=== PATIENT | male | born 1930 | race Caucasian/White ===

== ENCOUNTER → 2016-09-09 | Outpatient (CLI) | payer OTHER ==
[~2016-09-09] MED LIST: ASPCH81 PO; ATEN-173 PO; ATOR10TA88 PO; LEVO88TA22 PO; MULT-506 PO; OMEG10007 PO; PRLSR20 PO; VITAMINC; [UNRECOGNIZED DRUG - OTHER]; [UNRECOGNIZED DRUG - OTHER]
[2016-09-09 10:14] LABS: ALT/SGPT 41 U/L (12-78); AST/SGOT 30 U/L (15-37); BLOOD UREA NITROGEN 21 mg/dl (7-18); BUN/CREATININE RATIO 18.9 (10-20); CALCIUM 9.1 mg/dl (8.5-10.1); CARBON DIOXIDE 28 mmol/L (21-32); CHLORIDE 106 mmol/L (98-107); GLUCOSE 96 mg/dl (70-99); SODIUM 144 mmol/L (136-145)
[2016-09-09 10:25] LABS: ALB/GLOB RATIO 1.3 (0.9-2); ALKALINE PHOSPHATASE 61 U/L (45-117); CHOLESTEROL 133 mg/dl (0-200); CHOLESTEROL/HDL RATIO 3.6; HDL CHOLESTEROL 37 mg/dl; LDL CHOLESTEROL CALCULATED 49 mg/dl; TRIGLYCERIDES 235 mg/dl (0-150); VERY LOW DENSITY LIPOPROT CALC 47 mg/dl
== END | disposition home or self-care (01) ==
LOC: C.LAB 07:45
PROVIDERS: ATTEND Internal Medicine
DX: I47.1 Supraventricular tachycardia (principal); E03.9 Hypothyroidism, unspecified; E78.00 Pure hypercholesterolemia, unspecified

== ENCOUNTER → 2017-02-10 | Outpatient (CLI) | payer OTHER | END | disposition home or self-care (01) | LOC: C.LAB 08:38 | PROVIDERS: ATTEND Urology | DX: C61 Malignant neoplasm of prostate (principal) ==

== ENCOUNTER → 2017-02-10 | Outpatient (CLI) | payer OTHER ==
[2017-02-10 10:12] LABS: THYROID STIMULATING HORMONE 3.74 uIu/ml (0.300-4.500)
== END | disposition home or self-care (01) ==
LOC: C.LAB 08:35
PROVIDERS: ATTEND Internal Medicine
DX: E03.9 Hypothyroidism, unspecified (principal); C61 Malignant neoplasm of prostate

== ENCOUNTER → 2017-10-21 | Outpatient (CLI) | payer OTHER ==
[~2017-10-21] MED LIST changes: +ATOR10TA82 PO; -ATOR10TA88 PO
[2017-10-21 12:22] LABS: HEMATOCRIT 42.8 % (42-52); HEMOGLOBIN 15.1 g/dL (14.0-18.0); MEAN CORPUSCULAR HEMOGLOBIN 33.9 pg (25-34); MEAN CORPUSCULAR HGB CONC 35.3 g/dl (32-36); MEAN PLATELET VOLUME 10.1 fL (7.4-10.4); PLATELET COUNT 154 K/uL (130-400); RED CELL DISTRIBUTION WIDTH CV 12.8 % (11.5-14.5); RED CELL DISTRIBUTION WIDTH SD 44.3 fL (36.4-46.3); WHITE BLOOD COUNT 6.02 K/uL (4.8-10.8)
[2017-10-21 13:03] LABS: ALT/SGPT 39 U/L (12-78); AST/SGOT 31 U/L (15-37); BLOOD UREA NITROGEN 23 mg/dl (7-18); CALCIUM 9.3 mg/dl (8.5-10.1); CARBON DIOXIDE 27 mmol/L (21-32); CREATININE 1.02 mg/dl (0.60-1.40); GLUCOSE 100 mg/dl (70-99); POTASSIUM 4.2 mmol/L (3.5-5.1); SODIUM 142 mmol/L (136-145)
[2017-10-21 13:14] LABS: ALKALINE PHOSPHATASE 68 U/L (45-117); TOTAL PROTEIN 7.3 gm/dl (6.4-8.2)
== END | disposition home or self-care (01) ==
LOC: C.LAB 11:01
PROVIDERS: ATTEND Internal Medicine
DX: E03.9 Hypothyroidism, unspecified (principal); K21.9 Gastro-esophageal reflux disease without esophagitis; C61 Malignant neoplasm of prostate; E78.00 Pure hypercholesterolemia, unspecified

== ENCOUNTER 2020-12-17 07:52 | Inpatient (IN) ==
[2020-12-17] MEDS: SODIUM CHLORIDE 0.9% 1000ML 1,000 ML IV SCH ×3 (08:48→17:12)
[2020-12-17 08:58] LABS: Basophils # (auto) 0.01 K/uL (0-0.2); Basophils % (auto) 0.2 %; Hematocrit (blood only) 39.4 % (42-52); Hemoglobin 13.6 g/dL (14.0-18.0); Immature Granulocytes # (auto) 0.01 K/uL (0.00-0.02); Immature Granulocytes % (auto) 0.2 %; Lymphocytes # (auto) 0.73 K/uL (1.2-3.4); Lymphocytes % (auto) 16.9 %; Mean Corpuscular Hemoglobin 33.7 pg (25-34); Mean Corpuscular Hgb Conc 34.5 g/dL (32-36); Mean Corpuscular Volume 97.8 fL (80-100); Mean Platelet Volume 9.8 fL (7.4-10.4); Monocytes # (auto) 0.51 K/uL (0.11-0.59); Monocytes % (auto) 11.8 %; Neutrophils # (auto) 3.06 K/uL (1.4-6.5); Neutrophils % (auto) 70.9 %; Platelet Count 106 K/uL (130-400); RDW Coefficient of Variation 12.5 % (11.5-14.5); RDW Standard Deviation 45.2 fL (36.4-46.3); Red Blood Count 4.03 M/uL (4.7-6.1); White Blood Count 4.32 K/uL (4.8-10.8)
[2020-12-17 09:13] LABS: Alanine Aminotransferase 49 U/L (12-78); Albumin Level 3.3 gm/dl (3.4-5.0); Aspartate Aminotransferase 58 U/L (15-37); BUN Creatinine Ratio 20.5 (10-20); Blood Urea Nitrogen 23 mg/dl (7-18); Calcium 8.1 mg/dl (8.5-10.1); Carbon Dioxide 24 mmol/L (21-32); Chloride 103 mmol/L (98-107); Est GFR (African American) 66.9 ml/min; Est GFR (Non-African American) 57.7 ml/min; Glucose 131 mg/dl (70-99); Lipase 87 U/L (73-393); Potassium 3.8 mmol/L (3.5-5.1); Sodium 134 mmol/L (136-145)
[2020-12-17 09:16] LABS: Alkaline Phosphatase 59 U/L (45-117); Bilirubin,Total 0.9 mg/dl (0.2-1); Globulin 3.3 gm/dl (2.5-4.0); Total Protein 6.6 gm/dl (6.4-8.2)
[2020-12-17] MEDS ORDERED: DICYCLOMINE HCL 10 MG CAP PO ONE (09:36)
[2020-12-17] MEDS ORDERED: ONDANSETRON INJ 2 MG/ML 2 ML VIAL IV STA (09:36)
[2020-12-17] MEDS ORDERED: ACETAMINOPHEN 1,000 MG/100 ML VIAL IV STA (09:36)
[2020-12-17] MEDS ORDERED: OPTIRAY 320 100ml IV ONE (09:50)
--- NOTE | 2020-12-17 09:53 | Emergency Department Note ---
History of Present Illness General Chief complaint: GI Assessment Stated complaint: BURNING/COUGH UNTIL HE VOMITS Time Seen by Provider: 12/17/20 07:58 Source: patient and family Mode of arrival: wheelchair Limitations: no limitations History of Present Illness Provider complaint: Weakness, diarrhea Onset (ago): day(s) 1 Location: abdomen Radiation: non-radiation Severity: moderate Pain Consistency: + colicky Maximum Pain Intensity: 10 Current Pain Intensity: 10 Quality: + constant Relieved By: + none Exacerbated By: + eating and + movement Associated symptoms: + loss of appetite, + malaise and + weakness; no fever/chills Treatments prior to arrival: none This is an 89-year-old male who presents complaining of weakness and diarrhea. Patient states this all began yesterday evening, and has gotten worse. States he had several episodes of diarrhea this morning, prompting him to ask his daughter to bring him to the emergency room. Patient denies any recent sickness, no known sick contact. States approximately a month ago his "stomach medication" was changed, and since that time he has had burning in his stomach and an increase in acid reflux type symptoms which she has a long history of. No recent dietary changes. No recent use of antibiotics. He denies any blood in the diarrhea. States he is having colicky abdominal pain. States accompanying nausea, no vomiting. Denies any prior significant GI history of IBS, IBD, diverticulitis. Denies fevers or chills. Daughter states he has had a cough for about a week in addition and she is concerned for coronavirus. Daughter again confirms the reported medication change a month ago for his reflux. Patient was noted to have ongoing diarrhea in triage and upon arrival into the room. Pt seen during a time of high acuity and national emergency pandemic while wearing PPE. Home Medications Medication Instructions Recorded Confirmed Type ascorbic acid (vitamin C) [Vitamin 25 mg PO DAILY 12/17/20 12/17/20 History C] atenolol 25 mg PO QPM 12/17/20 12/17/20 History atorvastatin 10 mg PO [id number] 12/17/20 12/17/20 History famotidine 20 mg PO QAM 12/17/20 12/17/20 History levothyroxine 100 mcg PO QAM 12/17/20 12/17/20 History multivitamin 1 tab PO DAILY 12/17/20 12/17/20 History vitamin E [Alpha E] 400 unit PO DAILY 12/17/20 12/17/20 History zinc 10 mg PO DAILY 12/17/20 12/17/20 History Allergies Allergy/AdvReac Type Severity Reaction Status Date / Time No Known Allergies Allergy Unknown Verified 12/17/20 11:34 Past Med/Surg History Medical History (Updated 12/19/20 @ 13:19 by Laura Chin DO) GERD (gastroesophageal reflux disease) Heart murmur History of prostate cancer Hyperlipidemia Hypothyroid PVCs (premature ventricular contractions) Surgical History (Updated 12/17/20 @ 13:16 by Judith Gee PA-C) History of cholecystectomy History of colonoscopy History of esophagogastroduodenoscopy (EGD) History of lumbosacral spine surgery Family History (Updated 12/17/20 @ 13:17 by Judith Gee PA-C) Mother Urinary incontinence Social History (Updated 12/17/20 @ 13:17 by Judith Gee PA-C) Smoking Status: Never smoker Hx Alcohol Use: No Hx Substance Use: No Preferred Language: German Communication Ability: Effective Beliefs That Will Affect Care: None marital status: Current Living Situation: Spouse and Family Current Living Situation Comment: and son Other Information That Helps Us Care for You: No Feels Safe at Home: Yes Assistive Devices: Oxygen - Continuous Review of Systems See HPI for pertinent positives & negatives. and A total of 10 systems reviewed and were otherwise negative Physical Exam Vital Signs Vital Signs - 24 hr 12/17/20 07:55 12/17/20 08:09 12/17/20 08:12 Temperature 37.6 C H Temperature Source Temporal Artery Scan Pulse Rate 66 77 76 Pulse Rate from SpO2 Sensor 69 77 Respiratory Rate 18 21 21 Respiratory Effort / Characteristics Non-Labored Respiratory Depth Normal Blood Pressure 136/62 142/57 H Blood Pressure Mean 86 85 Pulse Oximetry 91 92 95 Oxygen Delivery Method Room Air Sepsis Recent Fever Within 48 Hours No Sepsis New/Unexplained Change in Mental Status No Sepsis Action Taken by Nursing No Action Required 12/17/20 08:30 12/17/20 09:00 Temperature Temperature Source Pulse Rate 79 77 Pulse Rate from SpO2 Sensor 72 67 Respiratory Rate 13 25 H Respiratory Effort / Characteristics Respiratory Depth Blood Pressure 117/57 L 107/60 Blood Pressure Mean 77 75 Pulse Oximetry 91 92 Oxygen Delivery Method Sepsis Recent Fever Within 48 Hours Sepsis New/Unexplained Change in Mental Status Sepsis Action Taken by Nursing GENERAL: alert, ill appearing, well nourished, no distress, non-toxic EYE EXAM: normal conjunctiva, PERRL and EOM's grossly intact OROPHARYNX: no exudate, no erythema, lips, buccal mucosa, and tongue normal and mucous membranes are moist NECK: supple, no nuchal rigidity, no adenopathy, non-tender LUNGS: Clear to auscultation. Normal chest wall mechanics, no w/r/r HEART: no murmurs, S1 normal and S2 normal, no reproducible chest wall tenderness ABDOMEN: abdomen soft, no tenderness or pain with palpation however generalized discomfort, normo-active bowel sounds, no masses, no rebound or guarding. BACK: Back is symmetrical on inspection and there is no deformity, no midline tenderness, no CVA tenderness. SKIN: no rashes and no bruising, no petechiae UPPER EXTREMITIES: upper extremities are grossly normal. FROM, nml pulses b/l. LOWER EXTREMITIES: 2+ b/l pitting edema which family states is chronic. FROM, nml pulses b/l. Dried stool noted on feet. NEURO EXAM: Normal sensorium, cranial nerves II-XII grossly intact, normal speech, no gross weakness of arms, no gross weakness of legs. Gross sensation intact. Course Course 1106: Patient and daughter updated on results. Patient states he still feels reflux/burning, denies any current nausea. States he still has some mild colicky abdominal discomfort. Patient has had several episodes of diarrhea while in the emergency department. States he still feels weak and lightheaded with standing. 1125[facility]. [facility]ations Artificial Tears (Artificial Tears) 1 drops OP UD PRN PRN Reason: DRY EYES Stop: 01/17/21 21:14 Last Admin: 12/18/20 22:07 Dose: 1 drops Documented by: [id number] Atenolol (Atenolol 25 Mg Tablet) 25 mg PO QPM MAIDA Stop: 01/16/21 20:59 Last Admin: 12/18/20 20:38 Dose: 25 mg Documented by: [id number] Admin: 12/17/20 20:57 Dose: 25 mg Documented by: [id number] Enoxaparin Sodium (Enoxaparin Inj 40 Mg/0.4 Ml Syr) 40 mg SQ Q24H MAIDA Stop: 01/16/21 15:59 Last Admin: 12/18/20 15:53 Dose: 40 mg Documented by: [id number] Admin: 12/17/20 17:12 Dose: 40 mg Documented by: [id number] Guaifenesin (Guaifenesin 600 Mg Tabcr) 600 mg PO Q12 MAIDA Stop: 01/16/21 20:59 Last Admin: 12/19/20 08:45 Dose: 600 mg Documented by: [id number] Admin: 12/18/20 20:38 Dose: 600 mg Documented by: [id number] Admin: 12/18/20 09:26 Dose: 600 mg Documented by: [id number] Admin: 12/17/20 20:46 Dose: 600 mg Documented by: [id number] Dexamethasone 6 mg/ Syringe 1.5 mls @ 1 mls/min IV DAILY MAIDA Stop: 12/27/20 13:14 Last Admin: 12/19/20 08:45 Dose: 1 mls/min Documented by: [id number] Admin: 12/18/20 09:27 Dose: 1 mls/min Documented by: [id number] Admin: 12/17/20 17:01 Dose: Not Given Documented by: [id number] Remdesivir 100 mg/ Sodium (Chloride) 250 mls @ 250 mls/hr IV Q24H MAIDA; Protocol Stop: 12/21/20 12:59 Last Admin: 12/19/20 12:17 Dose: 250 mls/hr Documented by: [id number] Infusion: 12/18/20 15:44 Dose: 0 mls/hr Documented by: [id number] Admin: 12/18/20 12:08 Dose: 250 mls/hr Documented by: [id number] Levothyroxine Sodium (Levothyroxine Sodium 100 Mcg Tablet) 100 mcg PO DAILY[facility] Stop: 01/17/21 06:29 Last Admin: 12/19/20 06:55 Dose: 100 mcg Documented by: [id number] Admin: 12/18/20 05:55 Dose: 100 mcg Documented by: [id number] Multivitamins (Multivitamin Tab) 1 tab PO DAILY MAIDA Stop: 01/17/21 08:59 Last Admin: 12/19/20 08:45 Dose: 1 tab Documented by: [id number] Admin: 12/18/20 09:27 Dose: 1 tab Documented by: [id number] Pantoprazole Sodium (Pantoprazole 40 Mg Tab) 40 mg PO DAILY MAIDA Stop: 12/20/20 09:01 Last Admin: 12/19/20 08:45 Dose: 40 mg Documented by: [id number] Admin: 12/18/20 09:26 Dose: 40 mg Documented by: [id number] Sodium Chloride (Sodium Chloride 0.9% 10ml Flush) 30 ml IV Q24H MAIDA Stop: 12/21/20 12:01 Last Admin: 12/18/20 12:09 Dose: 30 ml Documented by: [id number] Discontinued Medications Dexamethasone (Dexamethasone Sod Inj 4 Mg/Ml Vial) Confirm Administered Dose 8 mg .ROUTE .STK-MED ONE Stop: 12/17/20 13:41 Last Admin: 12/17/20 13:45 Dose: 6 mg Documented by: [id number] Dicyclomine HCl (Dicyclomine Hcl 10 Mg Cap) 10 mg PO NOW ONE Stop: 12/17/20 09:37 Last Admin: 12/17/20 10:06 Dose: 10 mg Documented by: [id number] Famotidine (Famotidine 20mg/5ml Iv Push) 20 mg IV ONE STA Stop: 12/17/20 11:09 Last Admin: 12/17/20 11:55 Dose: 20 mg Documented by: [id number] Sodium Chloride (Nss 1000ml) 1,000 mls @ 250 mls/hr IV .Q4H MAIDA Stop: 01/16/21 08:29 Last Admin: 12/17/20 16:07 Dose: Not Given Documented by: [id number] Infusion: 12/17/20 15:24 Dose: 0 mls/hr Documented by: [id number] Admin: 12/17/20 08:48 Dose: 250 mls/hr Documented by: [id number] Acetaminophen (Ofirmev) 1,000 mg in 100 mls @ 400 mls/hr IV NOW STA Stop: 12/17/20 09:50 Last Infusion: 12/17/20 10:25 Dose: 400 mls/hr Documented by: [id number] Admin: 12/17/20 10:04 Dose: 400 mls/hr Documented by: [id number] Remdesivir 200 mg/ Sodium (Chloride) 250 mls @ 125 mls/hr IV ONE STA; Protocol Stop: 12/17/20 15:08 Last Infusion: 12/17/20 13:45 Dose: 0 mls/hr Documented by: [id number] Admin: 12/17/20 13:44 Dose: 125 mls/hr Documented by: [id number] Sodium Chloride (Nss 1000ml) 1,000 mls @ 100 mls/hr IV .Q10H MAIDA Stop: 12/18/20 11:44 Last Infusion: 12/18/20 09:28 Dose: 0 mls/hr Documented by: [id number] Admin: 12/18/20 03:26 Dose: 100 mls/hr Documented by: [id number] Infusion: 12/18/20 03:26 Dose: 0 mls/hr Documented by: [id number] Admin: 12/17/20 17:12 Dose: 100 mls/hr Documented by: [id number] Furosemide 40 mg/ Syringe 4 mls @ 4 mls/min IV NOW ONE Stop: 12/18/20 12:31 Last Admin: 12/18/20 13:28 Dose: 4 mls/min Documented by: [id number] Ioversol (Optiray 320 100ml) 90 ml IV ONCE ONE Stop: 12/17/20 09:51 Last Admin: 12/17/20 09:51 Dose: 90 ml Documented by: [id number] Ipratropium [place] (Ipratropium [place] Neb Soln 0.02% 2.5 Ml Vial) 0.5 mg INH ONE ONE Stop: 12/18/20 12:31 Last Admin: 12/18/20 13:15 Dose: 0.5 mg Documented by: [id number] Levalbuterol HCl (Levalbuterol 1.25mg/0.5ml Neb) 1.25 mg INH ONE ONE Stop: 12/18/20 12:31 Last Admin: 12/18/20 13:15 Dose: 1.25 mg Documented by: [id number] Ondansetron HCl (Ondansetron Inj 2 Mg/Ml 2 Ml Vial) 4 mg IV NOW STA Stop: 12/17/20 09:37 Last Admin: 12/17/20 10:03 Dose: 4 mg Documented by: [id number] Pantoprazole Sodium (Pantoprazole 40 Mg Tab) 40 mg PO NOW STA Stop: 12/17/20 12:23 Last Admin: 12/17/20 13:44 Dose: 40 mg Documented by: [id number] Sodium Chloride (Nss 30ml Flush, Days 1-5) 30 ml IV ONE STA Stop: 12/17/20 13:40 Last Admin: 12/17/20 16:07 Dose: 30 ml Documented by: [id number] Medical Decision Making Differential Diagnosis Differential: Viral, Bacterial, Parasitic, Iatrogenic, C-Diff, Malabsorbtion, Irritable Bowel Disease, IBS, Ischemic Bowel, amongst other pathologies entertained. Medical Records Attestation: I reviewed the patient's medical records. Home Medications Current Medication List: was personally reviewed by me Laboratory Data Attestation: I reviewed the patient's lab results. Result diagrams: 12/18/20 02:38 12/19/20 07:36 Lab Results 12/17/20 12/17/20 12/17/20 Range/Units 08:38 08:38 08:39 WBC 4.32 L (4.8-10.8) K/uL RBC 4.03 L (4.7-6.1) M/uL Hgb 13.6 L (14.0-18.0) g/dL Hct 39.4 L (42-52) % MCV 97.8 (80-100) fL MCH 33.7 (25-34) pg MCHC 34.5 (32-36) g/dL RDW Std Deviation 45.2 (36.4-46.3) fL RDW Coeff of Anais 12.5 (11.5-14.5) % Plt Count 106 L (130-400) K/uL MPV 9.8 (7.4-10.4) fL Immature Gran % (Auto) 0.2 % Neut % (Auto) 70.9 % Lymph % (Auto) 16.9 % [place] % (Auto) 11.8 % Eos % (Auto) 0.0 % Baso % (Auto) 0.2 % Neut # (Auto) 3.06 (1.4-6.5) K/uL Lymph # (Auto) 0.73 L (1.2-3.4) K/uL [place] # (Auto) 0.51 (0.11-0.59) K/uL Eos # (Auto) 0.00 (0-0.5) K/uL Baso # (Auto) 0.01 (0-0.2) K/uL Immature Gran # (Auto) 0.01 (0.00-0.02) K/uL D-Dimer (0-500) ug/L FEU Sodium 134 L (136-145) mmol/L Potassium 3.8 (3.5-5.1) mmol/L Chloride 103 (98-107) mmol/L Carbon Dioxide 24 (21-32) mmol/L Anion Gap 8.0 (3-11) BUN 23 H (7-18) mg/dl Creatinine 1.13 (0.6-1.4) mg/dl Est Cr Clr Drug Dosing Not Reportable Est GFR ( Amer) 66.9 ml/min Est GFR (Non-Af Amer) 57.7 ml/min BUN/Creatinine Ratio 20.5 H (10-20) Glucose 131 H (70-99) mg/dl POC Glucose (70-99) mg/dl Calcium 8.1 L (8.5-10.1) mg/dl Phosphorus (2.5-4.9) mg/dl Magnesium 2.0 (1.8-2.4) mg/dl Ferritin 1560.8 H (8-388) ng/ml Total Bilirubin 0.9 (0.2-1) mg/dl AST 58 H (15-37) U/L ALT 49 (12-78) U/L Alkaline Phosphatase 59 (45-117) U/L Troponin I (0-0.045) ng/ml C-Reactive Protein 1.89 H (0-0.29) mg/dl NT-Pro-B Natriuret Pep (0-1800) pg/ml Total Protein 6.6 (6.4-8.2) gm/dl Albumin 3.3 L (3.4-5.0) gm/dl Globulin 3.3 (2.5-4.0) gm/dl Albumin/Globulin Ratio 1.0 (0.9-2) Lipase 87 (73-393) U/L Stl C. diff Tox B Gene TNP COVID-19 Eval Order SARS-CoV-2 (PCR) (Negative) 12/17/20 12/17/20 12/17/20 Range/Units 10:10 10:10 15:17 WBC (4.8-10.8) K/uL RBC (4.7-6.1) M/uL Hgb (14.0-18.0) g/dL Hct (42-52) % MCV (80-100) fL MCH (25-34) pg MCHC (32-36) g/dL RDW Std Deviation (36.4-46.3) fL RDW Coeff of Anais (11.5-14.5) % Plt Count (130-400) K/uL MPV (7.4-10.4) fL Immature Gran % (Auto) % Neut % (Auto) % Lymph % (Auto) % [place] % (Auto) % Eos % (Auto) % Baso % (Auto) % Neut # (Auto) (1.4-6.5) K/uL Lymph # (Auto) (1.2-3.4) K/uL [place] # (Auto) (0.11-0.59) K/uL Eos # (Auto) (0-0.5) K/uL Baso # (Auto) (0-0.2) K/uL Immature Gran # (Auto) (0.00-0.02) K/uL D-Dimer 830 H* (0-500) ug/L FEU Sodium (136-145) mmol/L Potassium (3.5-5.1) mmol/L Chloride (98-107) mmol/L Carbon Dioxide (21-32) mmol/L Anion Gap (3-11) BUN (7-18) mg/dl Creatinine (0.6-1.4) mg/dl Est Cr Clr Drug Dosing Est GFR ( Amer) ml/min Est GFR (Non-Af Amer) ml/min BUN/Creatinine Ratio (10-20) Glucose (70-99) mg/dl POC Glucose (70-99) mg/dl Calcium (8.5-10.1) mg/dl Phosphorus (2.5-4.9) mg/dl Magnesium (1.8-2.4) mg/dl Ferritin (8-388) ng/ml Total Bilirubin (0.2-1) mg/dl AST (15-37) U/L ALT (12-78) U/L Alkaline Phosphatase (45-117) U/L Troponin I (0-0.045) ng/ml C-Reactive Protein (0-0.29) mg/dl NT-Pro-B Natriuret Pep (0-1800) pg/ml Total Protein (6.4-8.2) gm/dl Albumin (3.4-5.0) gm/dl Globulin (2.5-4.0) gm/dl Albumin/Globulin Ratio (0.9-2) Lipase (73-393) U/L Stl C. diff Tox B Gene COVID-19 Eval Order Covid19 at [facility] SARS-CoV-2 (PCR) POSITIVE A* (Negative) 12/17/20 12/17/20 12/18/20 Range/Units 15:17 20:15 02:38 WBC 2.73 L (4.8-10.8) K/uL RBC 3.92 L (4.7-6.1) M/uL Hgb 13.0 L (14.0-18.0) g/dL Hct 38.6 L (42-52) % MCV 98.5 (80-100) fL MCH 33.2 (25-34) pg MCHC 33.7 (32-36) g/dL RDW Std Deviation 45.6 (36.4-46.3) fL RDW Coeff of Anais 12.7 (11.5-14.5) % Plt Count 107 L (130-400) K/uL MPV 10.1 (7.4-10.4) fL Immature Gran % (Auto) 0.4 % Neut % (Auto) 53.8 % Lymph % (Auto) 30.0 % [place] % (Auto) 15.8 % Eos % (Auto) 0.0 % Baso % (Auto) 0.0 % Neut # (Auto) 1.47 (1.4-6.5) K/uL Lymph # (Auto) 0.82 L (1.2-3.4) K/uL [place] # (Auto) 0.43 (0.11-0.59) K/uL Eos # (Auto) 0.00 (0-0.5) K/uL Baso # (Auto) 0.00 (0-0.2) K/uL Immature Gran # (Auto) 0.01 (0.00-0.02) K/uL D-Dimer (0-500) ug/L FEU Sodium (136-145) mmol/L Potassium (3.5-5.1) mmol/L Chloride (98-107) mmol/L Carbon Dioxide (21-32) mmol/L Anion Gap (3-11) BUN (7-18) mg/dl Creatinine (0.6-1.4) mg/dl Est Cr Clr Drug Dosing Est GFR ( Amer) ml/min Est GFR (Non-Af Amer) ml/min BUN/Creatinine Ratio (10-20) Glucose (70-99) mg/dl POC Glucose (70-99) mg/dl Calcium (8.5-10.1) mg/dl Phosphorus (2.5-4.9) mg/dl Magnesium (1.8-2.4) mg/dl Ferritin (8-388) ng/ml Total Bilirubin (0.2-1) mg/dl AST (15-37) U/L ALT (12-78) U/L Alkaline Phosphatase (45-117) U/L Troponin I 0.073 H* 0.069 H* (0-0.045) ng/ml C-Reactive Protein (0-0.29) mg/dl NT-Pro-B Natriuret Pep (0-1800) pg/ml Total Protein (6.4-8.2) gm/dl Albumin (3.4-5.0) gm/dl Globulin (2.5-4.0) gm/dl Albumin/Globulin Ratio (0.9-2) Lipase (73-393) U/L Stl C. diff Tox B Gene COVID-19 Eval Order SARS-CoV-2 (PCR) (Negative) 12/18/20 12/18/20 12/18/20 Range/Units 02:38 02:38 07:53 WBC (4.8-10.8) K/uL RBC (4.7-6.1) M/uL Hgb (14.0-18.0) g/dL Hct (42-52) % MCV (80-100) fL MCH (25-34) pg MCHC (32-36) g/dL RDW Std Deviation (36.4-46.3) fL RDW Coeff of Anais (11.5-14.5) % Plt Count (130-400) K/uL MPV (7.4-10.4) fL Immature Gran % (Auto) % Neut % (Auto) % Lymph % (Auto) % [place] % (Auto) % Eos % (Auto) % Baso % (Auto) % Neut # (Auto) (1.4-6.5) K/uL Lymph # (Auto) (1.2-3.4) K/uL [place] # (Auto) (0.11-0.59) K/uL Eos # (Auto) (0-0.5) K/uL Baso # (Auto) (0-0.2) K/uL Immature Gran # (Auto) (0.00-0.02) K/uL D-Dimer (0-500) ug/L FEU Sodium 140 (136-145) mmol/L Potassium 4.2 (3.5-5.1) mmol/L Chloride 109 H (98-107) mmol/L Carbon Dioxide 26 (21-32) mmol/L Anion Gap 5.0 (3-11) BUN 18 (7-18) mg/dl Creatinine 0.98 (0.6-1.4) mg/dl Est Cr Clr Drug Dosing 62.6 Est GFR ( Amer) 79.5 ml/min Est GFR (Non-Af Amer) 68.6 ml/min BUN/Creatinine Ratio 18.4 (10-20) Glucose 133 H (70-99) mg/dl POC Glucose 124 H (70-99) mg/dl Calcium 7.7 L (8.5-10.1) mg/dl Phosphorus 2.6 (2.5-4.9) mg/dl Magnesium 2.4 (1.8-2.4) mg/dl Ferritin (8-388) ng/ml Total Bilirubin 0.7 (0.2-1) mg/dl AST 59 H (15-37) U/L ALT 47 (12-78) U/L Alkaline Phosphatase 54 (45-117) U/L Troponin I 0.054 H* (0-0.045) ng/ml C-Reactive Protein (0-0.29) mg/dl NT-Pro-B Natriuret Pep 1287 (0-1800) pg/ml Total Protein 5.7 L (6.4-8.2) gm/dl Albumin 2.7 L (3.4-5.0) gm/dl Globulin 3.0 (2.5-4.0) gm/dl Albumin/Globulin Ratio 0.9 (0.9-2) Lipase (73-393) U/L Stl C. diff Tox B Gene COVID-19 Eval Order SARS-CoV-2 (PCR) (Negative) Imaging Data Radiologist's Impression: Abdomen/Pelvis CT 12/17/20 09:[address] WITH IV CONTRAST CT DOSE: 915.76 mGy.cm HISTORY: Generalized abdominal pain. Nausea. Diarrhea. TECHNIQUE: Multiaxial CT images of the abdomen and pelvis were performed following the use of intravenous contrast. A dose lowering technique was utilized adhering to the principles of ALARA. COMPARISON STUDY: Abdomen and pelvis CT 10/28/2011. FINDINGS: Patchy multifocal groundglass airspace opacities within the lung bases with mild interlobular septal thickening. This favors a mild viral pneumonia. Pulmonary edema could also have a similar appearance but is considered less likely. There is mild interlobular septal thickening and a trace right pleural e ffusion. The heart is mildly enlarged. There are few subcentimeter pulmonary nodules within the lung bases with the largest in the right lower lobe on image 88 measuring 6 mm. These remain unchanged and are therefore considered to be benign. No pneumoperitoneum. No pneumatosis. Posterior decompression and fusion from L2 through L5 with pedicle screws and rods. No suspicious lytic or blastic osseous lesions. Small hiatus hernia. Cholecystectomy. Mild hepatic steatosis. There are few subcentimeter hypodensities within the liver. These are technically too small to characterize but favor small cysts. Mild intrahepatic bile duct dilatation. The common bile duct measures up to 11 mm. This could be due to the patient's postcholecystectomy state. The spleen, adrenal glands, and pancreas are unremarkable. No hydronephrosis. No retroperitoneal lymphadenopathy. The main portal vein is patent. Normal caliber abdominal aorta. No pelvic lymphadenopathy. The bladder is unremarkable. Multiple brachytherapy seeds are noted within the prostate gland. Nondilated fluid-filled loops of large and small bowel are seen throughout the abdomen. No definite bowel wall thickening. No evidence for bowel obstruction. Normal appendix. Colonic diverticulosis. No evidence for acute diverticulitis. IMPRESSION: 1. Nondilated fluid-filled loops of large and small bowel seen throughout the abdomen. This likely represents a gastroenteritis. No definite bowel wall thickening. 2. Colonic diverticulosis. No evidence for acute diverticulitis. 3. Patchy multifocal airspace opacities seen within the lung bases. This favors a mild viral pneumonia. 4. Additional findings as described above. ACT 112: Negative or not required by law. Electronically signed by: Michael Gresham M.D. 12/17/2020 10:09 AM ECG Data Attestation: I personally reviewed and interpreted this ECG as follows: Indication: + nausea Rate (beats per minute): 70 Rhythm: + normal sinus ECG Intervals/blocks: + First degree AV block, + Normal QRS and + Normal QT ECG [place]: + Left axis deviation ECG ST segments: + Nonspecific ST abnormalities ECG Findings: + PVCs MDM Narrative This is an 89-year-old male brought in by family due to concern for increased weakness and diarrhea. Of note while patient denied anything else in review of systems related to his breathing, daughter states she had noticed an intermittent dry cough over the course of the week. Labs drawn and sent, patient started on gentle IV fluid hydration given advanced age, and unknown overall cardiac status. Patient was given medication for nausea. Patient did have several episodes of diarrhea while here. Cultures including C. difficile were ordered. Patient with no other risk factors for C. difficile and no prior history of that. CT of the abdomen and pelvis did show likely viral process in the lungs as well as likely gastroenteritis in the abdomen. Coronavirus test was positive which likely explains both of these findings. Patient was hemodynamically stable in the emergency room. No complaints of respiratory distress and no hypoxia noted or reported to me. Discussed with him additional inpatient monitoring given ongoing GI losses, continued weakness/lightheadedness with standing likely representing dehydration and orthostatic symptoms. I do not suspect bacteremia/sepsis. Patient states burning in the chest consistent with prior reflux type symptoms. No dysrhythmia noted on telemetry, occasional PVCs. No history of CAD although patient does have risk factors. I do not suspect ACS, PE, or acute vascular etiology of the chest burning at this time. Patient states burning began after his reflux medication was changed several weeks ago. Mild pancytopenia also noted, likely worsened with acute viral process. Patient and daughter verbalized understanding of results and were in agreement with the plan. Case discussed with hospitalist team for additional evaluation and treatment. An order was placed for continuous cardiac monitoring. The monitor shows a rate of 68_ with _normal sinus__ rhythm. Patient has no family history of IBS/IBD. Patient was first seen and observation began at 0758 and was necessary in order to determine etiology of diarrhea and treat symptoms including dehydration. Upon re-evaluation, 3.5 hours of observation revealed that the patient should be admitted. Discharge time at 1155. Impression & Plan Diarrhea, COVID-19, Weakness, Acute dehydration, Pancytopenia, GERD (gastroesophageal reflux disease) Discharge Plan Visit Data Chief Complaint: GI Assessment Stated Complaint: BURNING/COUGH UNTIL HE VOMITS ED Provider: Laura Chin Discharge Problem: Diarrhea, COVID-19, Weakness, Acute dehydration, Pancytopenia, GERD (gastroesophageal reflux disease) Patient Disposition: Admitted As Inpatient Discharge Instructions Interventions: ED Discharge Assessment Last Done: 12/17/20 14:26 Discharge Problem: Diarrhea Qualifiers: Diarrhea type: unspecified type Qualified Code(s): R19.7 - Diarrhea, unspecified GERD (gastroesophageal reflux disease) Qualifiers: Esophagitis presence: esophagitis presence not specified Qualified Code(s): K21.9 - Gastro-esophageal reflux disease without esophagitis
--- NOTE | 2020-12-17 10:10 | CT Scan Report ---
ABDOMEN AND PELVIS CT WITH IV CONTRAST CT DOSE: 915.76 mGy.cm HISTORY: Generalized abdominal pain. Nausea. Diarrhea. TECHNIQUE: Multiaxial CT images of the abdomen and pelvis were performed following the use of intrave nous contrast. A dose lowering technique was utilized adhering to the principles of ALARA. COMPARISON STUDY: Abdomen and pelvis CT 10/28/2011. FINDINGS: Patchy multifocal groundglass airspace opacities within the lung bases with mild interlobul ar septal thickening. This favors a mild viral pneumonia. Pulmonary edema could also have a similar a ppearance but is considered less likely. There is mild interlobular septal thickening and a trace rig ht pleural effusion. The heart is mildly enlarged. There are few subcentimeter pulmonary nodules with in the lung bases with the largest in the right lower lobe on image 88 measuring 6 mm. These remain u nchanged and are therefore considered to be benign. No pneumoperitoneum. No pneumatosis. Posterior de compression and fusion from L2 through L5 with pedicle screws and rods. No suspicious lytic or blasti c osseous lesions. Small hiatus hernia. Cholecystectomy. Mild hepatic steatosis. There are few subcen timeter hypodensities within the liver. These are technically too small to characterize but favor sma ll cysts. Mild intrahepatic bile duct dilatation. The common bile duct measures up to 11 mm. This cou ld be due to the patient's postcholecystectomy state. The spleen, adrenal glands, and pancreas are un remarkable. No hydronephrosis. No retroperitoneal lymphadenopathy. The main portal vein is patent. No rmal caliber abdominal aorta. No pelvic lymphadenopathy. The bladder is unremarkable. Multiple brachy therapy seeds are noted within the prostate gland. Nondilated fluid-filled loops of large and small b owel are seen throughout the abdomen. No definite bowel wall thickening. No evidence for bowel obstru ction. Normal appendix. Colonic diverticulosis. No evidence for acute diverticulitis. IMPRESSION: 1. Nondilated fluid-filled loops of large and small bowel seen throughout the abdomen. This likely re presents a gastroenteritis. No definite bowel wall thickening. 2. Colonic diverticulosis. No evidence for acute diverticulitis. 3. Patchy multifocal airspace opacities seen within the lung bases. This favors a mild viral pneumoni a. 4. Additional findings as described above. ACT 112: Negative or not required by law. Electronically signed by: Michael Gresham M.D. 12/17/2020 10:09 AM
[2020-12-17] MEDS ORDERED: FAMOTIDINE 20MG/5ML IV PUSH IV STA (11:08)
--- NOTE | 2020-12-17 12:09 | XRay Report ---
XR chest 1V portable HISTORY: cough, covid COMPARISON: Abdomen and pelvis CT 12/17/2020. FINDINGS: No pneumothorax. There is mild diffuse interstitial thickening. There are patchy hazy airsp gracie opacities within the mid to lower lung zones most pronounced on the left. This likely represents a viral pneumonia. The heart is mildly enlarged. IMPRESSION: Bilateral patchy airspace opacities within the mid to lower lung zones consistent with a viral pneumo geoffrey. ACT 112: Negative or not required by law. Electronically signed by: Michael Gresham M.D. 12/17/2020 12:08 PM
[2020-12-17] MEDS ORDERED: PANTOprazole 40 MG TAB PO STA (12:22)
--- NOTE | 2020-12-17 12:27 | History & Physical Report ---
Date of Service December 17, 2020 Assessment & Plan (1) COVID-19 virus infection: (2) Diarrhea: (3) Acute respiratory failure with hypoxia: Patient is an 89 yo male who presented to the ED with complaints of diarrhea, stool incontinence, and weakness. He was found to be COVID+ on initial testing. In the ED, patient was also noted to have slight O2 desaturation down to 87% on room air. CXR consistent with viral pneumonia. Admit to Med/Surg with telemetry for further tx Continue O2 supplementation to maintain SaO2 >90% Continue to monitor vitals closely. NSS 100 cc/hr x 2 bags Regular diet- easy to chew. Aspiration precautions with dysphagia secondary to GERD. Advance as tolerated Continue COVID Isolation precautions Recheck C Diff if able based on liquid stools. Follow stool cultures. With O2 desaturation, will start IV Decadron 6 mg daily x 10 days. Start Remdesivir. Incentive spirometry Q1HWA Flutter valve QID Mucinex 600 mg BID Repeat CXR tomorrow AM Zofran PRN Nausea Fall precautions. Consider PT/OT if weakness continues. Patient is full code (4) Bilateral lower extremity edema: B/L LE with severe edema. Some chronic component per patient, but worrisome. Will check Venous Doppler B/L LE (5) Burning chest pain: Check DDimer with burning chest pain, COVID infection, and O2 desaturation. Consider CTA Chest if elevated. Troponin also added. (6) PVCs (premature ventricular contractions): (7) Heart murmur: Continue cardiac monitoring. BP slightly elevated. HR controlled. Continue home meds (8) GERD (gastroesophageal reflux disease): (9) Dysphagia: Burning in chest and ongoing dysphagia (dysphagia has been for months). Continue famotidine. Start PPI Consider continuing PPI upon discharge- patient was previously on omeprazole until around August. This is when symptoms worsened. Diet as above (10) DVT prophylaxis: Lovenox 40 SQ daily History of Present Illness Chief Complaint: Diarrhea, COVID+ Primary Care Provider: Jelena Fajardo Patient is an 89 yo male with PMHx of hyperlipidemia, PVCs, GERD, and history of Prostate CA in 2009 who presented to the ED with complaints of ongoing diarrhea and stool incontinence starting last night and into this morning. He initially started having increased GERD symptoms with burning in his chest about 1 week ago. He notes that his PCP changed him from omeprazole to famotidine about 3 months ago, and since that time, his GERD has been poorly controlled. He also has ongoing dysphagia at times because of it. Last week, his GERD got much worse, and he has had consistent 'acid in throat' and burning in his chest since that time. His daughter, Camilla is with him today. She notes a mild cough at home as well. The patient has not had his COVID vaccine. He does live at home with one of his sons and is relatively independent. This morning, he also became weak. He did not fall. He notes that he has not eaten much of anything since Friday because of the increased GERD symptoms. No black or bloody stools noted. Upon presentation, patient was noted to be actively incontinent of stool in the waiting room. Since presentation, the patient was noted to be COVID+. Stool for C Diff was rejected though it sounds like he has had persistently watery stools since then. Stool culture pending. Labs show mild anemia with Hgb 13.6. WBC count low at 4.32 CT of the abd/pelvis and CXR both showed signs of viral pneumonia. Creatinine was 1.13 with GFR 57%. AST slightly elevated to 58. SaO2 dropping in ED to 88% on room air during exam. Patient states that he does also have chronic LE edema, but this seems worse than usual as well. He is not feeling SOB or complaining of chest pain other than the burning. Allergies Allergy/AdvReac Type Severity Reaction Status Date / Time No Known Allergies Allergy Unknown Verified 12/17/20 11:34 Home Medications Medication Instructions Recorded Confirmed Type ascorbic acid (vitamin C) [Vitamin 25 mg PO DAILY 12/17/20 12/17/20 History C] atenolol 25 mg PO QPM 12/17/20 12/17/20 History atorvastatin 10 mg PO 3XWK 12/17/20 12/17/20 History famotidine 20 mg PO QAM 12/17/20 12/17/20 History levothyroxine 100 mcg PO QAM 12/17/20 12/17/20 History multivitamin 1 tab PO DAILY 12/17/20 12/17/20 History vitamin E [Alpha E] 400 unit PO DAILY 12/17/20 12/17/20 History zinc 10 mg PO DAILY 12/17/20 12/17/20 History Past Med/Surg History Medical History (Updated 12/17/20 @ 16:09 by Judith Gee PA-C) GERD (gastroesophageal reflux disease) Heart murmur History of prostate cancer Hyperlipidemia Hypothyroid PVCs (premature ventricular contractions) Surgical History (Updated 12/17/20 @ 13:16 by Judith Gee PA-C) History of cholecystectomy History of colonoscopy History of esophagogastroduodenoscopy (EGD) History of lumbosacral spine surgery Family History (Updated 12/17/20 @ 13:17 by Judith Gee PA-C) Mother Urinary incontinence Social History (Updated 12/17/20 @ 13:17 by Judith Gee PA-C) Smoking Status: Never smoker Hx Alcohol Use: No Hx Substance Use: No Preferred Language: [place] Beliefs That Will Affect Care: None Current Living Situation: Spouse and Family Current Living Situation Comment: and son Other Information That Helps Us Care for You: No Feels Safe at Home: Yes Assistive Devices: Glasses Review of Systems Review of Systems: All systems reviewed & are unremarkable except as noted in HPI & below Physical Exam Constitutional: WD/WN, vitals as above Eyes: PERRL, conjunctivae normal, anicteric sclerae ENMT: external ear and nose normal, oropharynx normal Neck: trachea midline, no thyromegaly Respiratory: normal respiratory effort; no respiratory distress, no labored breathing and does not use accessory muscles Auscultation: no crackles and no wheezes Cardiovascular: Rate/Rhythm: regular rate and regular rhythm Heart Sounds: + murmur Extremities: + pedal edema and + edema (B/L LE 1+ trace, but moderate edema otherwise); no calf tenderness Gastrointestinal (Abdomen): Inspection/Auscultation: abdomen normal to inspection and normal bowel sounds; abdomen not distended Percussion/Palpation: abdomen soft; abdomen nontender, no guarding and abdomen not rigid Musculoskeletal: Severe edema B/L LE. L>R. No erythema or warmth. Skin: no rashes, warm and dry Neurologic: PERRL, EOMI, accommodation nl, no face palsy, no dysarthria Psychiatric: A+Ox3, euthymic affect Results & Data Results & Data ([facility]) Vital Signs (Past 12 Hours) Vital Signs Temp Pulse Resp BP Pulse Ox 12/17/20 11:31 69 30 H 90 12/17/20 11:30 104 H 29 H 118/70 89 L 12/17/20 11:00 71 28 H 105/55 L 12/17/20 10:30 72 30 H 112/54 L 87 L 12/17/20 10:01 67 20 110/75 12/17/20 10:00 77 26 H 91 12/17/20 09:30 70 31 H 129/56 L 93 12/17/20 09:00 77 25 H 107/60 92 12/17/20 08:30 79 13 117/57 L 91 12/17/20 08:12 76 21 95 12/17/20 08:09 77 21 142/57 H 92 12/17/20 07:55 37.6 C H 66 18 136/62 91 Laboratory Results Laboratory Results - last 24 hr 12/17/20 12/17/20 12/17/20 08:38 08:38 08:39 WBC 4.32 L RBC 4.03 L Hgb 13.6 L Hct 39.4 L MCV 97.8 MCH 33.7 MCHC 34.5 RDW Std Deviation 45.2 RDW Coeff of Anais 12.5 Plt Count 106 L MPV 9.8 Immature Gran % (Auto) 0.2 Neut % (Auto) 70.9 Lymph % (Auto) 16.9 [place] % (Auto) 11.8 Eos % (Auto) 0.0 Baso % (Auto) 0.2 Neut # (Auto) 3.06 Lymph # (Auto) 0.73 L [place] # (Auto) 0.51 Eos # (Auto) 0.00 Baso # (Auto) 0.01 Immature Gran # (Auto) 0.01 Sodium 134 L Potassium 3.8 Chloride 103 Carbon Dioxide 24 Anion Gap 8.0 BUN 23 H Creatinine 1.13 Est Cr Clr Drug Dosing Not Reportable Est GFR ( Amer) 66.9 Est GFR (Non-Af Amer) 57.7 BUN/Creatinine Ratio 20.5 H Glucose 131 H Calcium 8.1 L Magnesium 2.0 Total Bilirubin 0.9 AST 58 H ALT 49 Alkaline Phosphatase 59 Total Protein 6.6 Albumin 3.3 L Globulin 3.3 Albumin/Globulin Ratio 1.0 Lipase 87 Stl C. diff Tox B Gene TNP COVID-19 Eval Order SARS-CoV-2 (PCR) 12/17/20 12/17/20 10:10 10:10 WBC RBC Hgb Hct MCV MCH MCHC RDW Std Deviation RDW Coeff of Anais Plt Count MPV Immature Gran % (Auto) Neut % (Auto) Lymph % (Auto) [place] % (Auto) Eos % (Auto) Baso % (Auto) Neut # (Auto) Lymph # (Auto) [place] # (Auto) Eos # (Auto) Baso # (Auto) Immature Gran # (Auto) Sodium Potassium Chloride Carbon Dioxide Anion Gap BUN Creatinine Est Cr Clr Drug Dosing Est GFR ( Amer) Est GFR (Non-Af Amer) BUN/Creatinine Ratio Glucose Calcium Magnesium Total Bilirubin AST ALT Alkaline Phosphatase Total Protein Albumin Globulin Albumin/Globulin Ratio Lipase Stl C. diff Tox B Gene COVID-19 Eval Order Covid19 at [facility] SARS-CoV-2 (PCR) POSITIVE A* Diagnostic Findings CXR: IMPRESSION: Bilateral patchy airspace opacities within the mid to lower lung zones consistent with a viral pneumonia. Abd/Pelvis CT: IMPRESSION: 1. Nondilated fluid-filled loops of large and small bowel seen throughout the abdomen. This likely represents a gastroenteritis. No definite bowel wall thickening. 2. Colonic diverticulosis. No evidence for acute diverticulitis. 3. Patchy multifocal airspace opacities seen within the lung bases. This favors a mild viral pneumonia. 4. Additional findings as described above. Code Status & VTE Plan VTE Prophylaxis Plan VTE Prophylaxis will be ordered: Yes Supervising Physician Co-Signing Physician Notes Attending Addendum: care coordinated with JASON Gee please refer to her notes for full details, I agree with her notes patient seen and examined, records reviewed by myself as well on exam, patient seen resting in bed, comfortable, on 2L 02 MS states he feels improved compared to admission epigastric discomfort resolved no active dyspnea, chest pain, dizziness, palpitations no abdominal pain, nausea/vomiting still has diarrhea no other symptoms VS noted and reviewed oriented x 3, not in distress, speaks in sentences with no effort nor accessory muscle use normal rate, regular rhythm, no murmurs clear breath sounds bilaterally non distended, soft, nontender (+) mild lower extremity edema, NO erythema, warmth no neuro deficits WBC 4.3 Hg 13.6 Crea 1.1 ASSESSMENT AND PLAN> COVID 19 PNEUMONIA WITH HYPOXIA start Remdesivir + Decadron GASTROENTERITIS SECONDARY TO COVID C diff test pending Imodium PRN GERD Protonix other diagnoses and plan of care as per JASON Wilder MD
[2020-12-17] MEDS ORDERED: REMDESIVIR 200 MG in SODIUM CHLORIDE 0.9% 210 ML IV STA (13:09)
[2020-12-17] MEDS ORDERED: NSS 30mL Flush, Days 1-5 IV STA (13:39)
[2020-12-17] MEDS ORDERED: DEXAMETHASONE SOD INJ 4 MG/ML VIAL ONE (13:40)
[2020-12-17] MEDS ORDERED: ONDANSETRON INJ 2 MG/ML 2 ML VIAL IV PRN (15:21)
[2020-12-17] MEDS ORDERED: ACETAMINOPHEN 325 MG TAB PO PRN (15:21)
[2020-12-17 15:52] LABS: D Dimer 830 ug/L FEU (0-500)
[2020-12-17] MEDS ORDERED: MICONAZOLE NITRATE POWDER 43 GM EXT PRN (16:47)
--- NOTE | 2020-12-17 16:50 | XRay Report ---
XR chest 1V portable HISTORY: Covid pneumonia. Shortness of breath. COMPARISON: Chest 12/17/2020. FINDINGS: No pneumothorax. No pleural effusions. The heart remains enlarged. Mild diffuse interstitia l thickening with patchy peripheral airspace opacities within the mid to lower lung zones persists. T his favors a viral pneumonia. IMPRESSION: No change in the bilateral mid to lower lung zone airspace opacities likely representing a viral pneu monia. ACT 112: Negative or not required by law. Electronically signed by: Michael Gresham M.D. 12/17/2020 4:49 PM
[2020-12-17] MEDS: dexAMETHasone 6 MG in SYRINGE 0 ML IV SCH (17:01)
[2020-12-17] MEDS: ENOXAPARIN INJ 40 MG/0.4 ML SYR SQ SCH (17:12)
[2020-12-17 18:19] LABS: C Reactive Protein 1.89 mg/dl (0-0.29); Ferritin 1560.8 ng/ml (8-388)
--- NOTE | 2020-12-17 20:02 | Ultrasound Report ---
BILATERAL LOWER EXTREMITY VENOUS DOPPLER HISTORY: Bilateral lower extremity edema COMPARISON STUDY: None. FINDINGS: There is normal compressibility, flow, and augmentation within the bilateral lower extremit y deep venous systems. IMPRESSION: No DVT within the right or left lower extremity. ACT 112: Negative or not required by law. Electronically signed by: Michael Gresham M.D. 12/17/2020 8:01 PM
[2020-12-17] MEDS: guaiFENesin 600 MG TABCR PO SCH (20:46)
[2020-12-17] MEDS: ATENOLOL 25 MG TABLET PO SCH (20:57)
--- NOTE | 2020-12-17 23:38 | Electrocardiogram Report ---
Test Reason : Blood Pressure : / mmHG Vent. Rate : 070 BPM Atrial Rate : 070 BPM P-R Int : 222 ms QRS Dur : 088 ms QT Int : 408 ms P-R-T Axes : 000 -28 008 degrees QTc Int : 440 ms Sinus rhythm with 1st degree A-V block with frequent Premature ventricular complexes and Premature at rial complexes Otherwise normal ECG When compared with ECG of 24-SEP-2007 09:18, DE interval has increased Nonspecific T wave abnormality no longer evident in Lateral leads Confirmed by Walt Weinberg ([id number]) on 12/17/2020 11:38:18 PM Referred By: REFERRED SELF Confirmed By:Walt Weinberg
[2020-12-18 03:19] LABS: Hematocrit (blood only) 38.6 % (42-52); Immature Granulocytes # (auto) 0.01 K/uL (0.00-0.02); Immature Granulocytes % (auto) 0.4 %; Lymphocytes # (auto) 0.82 K/uL (1.2-3.4); Mean Corpuscular Hemoglobin 33.2 pg (25-34); Mean Corpuscular Hgb Conc 33.7 g/dL (32-36); Mean Corpuscular Volume 98.5 fL (80-100); Mean Platelet Volume 10.1 fL (7.4-10.4); Monocytes # (auto) 0.43 K/uL (0.11-0.59); Monocytes % (auto) 15.8 %; Neutrophils # (auto) 1.47 K/uL (1.4-6.5); Neutrophils % (auto) 53.8 %; Platelet Count 107 K/uL (130-400); RDW Coefficient of Variation 12.7 % (11.5-14.5); RDW Standard Deviation 45.6 fL (36.4-46.3); Red Blood Count 3.92 M/uL (4.7-6.1); White Blood Count 2.73 K/uL (4.8-10.8)
[2020-12-18] MEDS: SODIUM CHLORIDE 0.9% 1000ML 1,000 ML IV SCH (03:26)
[2020-12-18 03:42] LABS: Albumin Level 2.7 gm/dl (3.4-5.0); BUN Creatinine Ratio 18.4 (10-20); Calcium 7.7 mg/dl (8.5-10.1); Creatinine Clr Calc Pharmacy 62.6 ml/min; Est GFR (African American) 79.5 ml/min; Est GFR (Non-African American) 68.6 ml/min; Magnesium 2.4 mg/dl (1.8-2.4); Potassium 4.2 mmol/L (3.5-5.1)
[2020-12-18 03:50] LABS: Albumin Globulin Ratio 0.9 (0.9-2); Bilirubin,Total 0.7 mg/dl (0.2-1); Phosphorus 2.6 mg/dl (2.5-4.9); Total Protein 5.7 gm/dl (6.4-8.2); Troponin I 0.054 ng/ml (0-0.045)
[2020-12-18] MEDS: LEVOTHYROXINE SODIUM 100 MCG TABLET PO SCH (05:55)
--- NOTE | 2020-12-18 08:19 | XRay Report ---
XR chest 1V portable HISTORY: Shortness of breath. Covid pneumonia. COMPARISON: Chest 12/17/2020. FINDINGS: Slight progression of the left mid to lower lung zone peripherally airspace opacities. Patc hy densities within the right mid to lower lung zone persists. The heart remains mildly enlarged. The re is diffuse interstitial thickening, unchanged. No pleural effusions. No pneumothorax. IMPRESSION: Multifocal bilateral airspace opacities which have slightly progressed on the left consistent with a viral pneumonia. ACT 112: Negative or not required by law. Electronically signed by: Michael Gresham M.D. 12/18/2020 8:18 AM
[2020-12-18] MEDS ORDERED: FAMOTIDINE 20 MG TAB PO SCH (09:00)
[2020-12-18] MEDS ORDERED: ATORVASTATIN 10 MG TAB PO SCH (09:00)
[2020-12-18] MEDS ORDERED: LOPERAMIDE HCL 2 MG CAP PO PRN (09:06)
[2020-12-18] MEDS: guaiFENesin 600 MG TABCR PO SCH ×2 (09:26→20:38)
[2020-12-18] MEDS: PANTOprazole 40 MG TAB PO SCH (09:26)
[2020-12-18] MEDS: MULTIVITAMIN TAB PO SCH (09:27)
[2020-12-18] MEDS: dexAMETHasone 6 MG in SYRINGE 0 ML IV SCH (09:27)
[2020-12-18] MEDS: REMDESIVIR 100 MG in SODIUM CHLORIDE 0.9% 230 ML IV SCH (12:08)
[2020-12-18] MEDS: SODIUM CHLORIDE 0.9% 10ML FLUSH IV SCH (12:09)
[2020-12-18] MEDS ORDERED: XOPENEX/ATROVENT 1.25mg/0.5MG NEB COMBO NEB STA (12:21)
[2020-12-18] MEDS ORDERED: IPRATROPIUM BROMIDE NEB SOLN 0.02% 2.5 ML VIAL INH ONE (12:30)
[2020-12-18] MEDS ORDERED: LEVALBUTEROL 1.25MG/0.5ML NEB INH ONE (12:30)
[2020-12-18] MEDS ORDERED: FUROSEMIDE 40 MG in SYRINGE 0 ML IV ONE (12:30)
--- NOTE | 2020-12-18 12:50 | XRay Report ---
XR chest 1V portable CLINICAL HISTORY: shortness of breath, covid pneumona, possible CHF COMPARISON STUDY: 12/18/2020 FINDINGS: The heart remains enlarged. There are persistent bilateral pulmonary airspace opacities con sistent with a multifocal pneumonia. An element of coexistent mild pulmonary vascular congestion woul d be difficult to exclude. There are no significant pleural effusions.[ IMPRESSION: 1. No significant change from the preceding study 2. Stable cardiomegaly 3. Stable bilateral pulmonary airspace opacities consistent with a multifocal pneumonia ACT 112: Negative or not required by law. Electronically signed by: Parviz Hollins M.D. 12/18/2020 12:49 PM
--- NOTE | 2020-12-18 14:31 | Electrocardiogram Report ---
Test Reason : Blood Pressure : / mmHG Vent. Rate : 055 BPM Atrial Rate : 055 BPM P-R Int : 268 ms QRS Dur : 086 ms QT Int : 462 ms P-R-T Axes : 034 -29 010 degrees QTc Int : 441 ms Sinus bradycardia with 1st degree A-V block with occasional Premature ventricular complexes Otherwise normal ECG When compared with ECG of 17-DEC-2020 08:56, Premature atrial complexes are no longer Present Confirmed by Gary Hays ([id number]) on 12/18/2020 2:31:27 PM Referred By: REFERRED SELF Confirmed By:Gary Hays
[2020-12-18] MEDS: ENOXAPARIN INJ 40 MG/0.4 ML SYR SQ SCH (15:53)
--- NOTE | 2020-12-18 16:31 | Hospitalist Progress Note ---
Date of Service December 18, 2020 Assessment & Plan (1) COVID-19 virus infection: (2) Diarrhea: (3) Acute respiratory failure with hypoxia: per JASON Gee notes: Patient is an 89 yo male who presented to the ED with complaints of diarrhea, stool incontinence, and weakness. He was found to be COVID+ on initial testing. In the ED, patient was also noted to have slight O2 desaturation down to 87% on room air. CXR consistent with viral pneumonia. Admit to Med/Surg with telemetry for further tx 12/18 92-94% on 2 L NC symptoms improving per patient diarrhea resolved continue Decadron Day 2 Remdesivir Day 2 Incentive spirometry Q1HWA Flutter valve QID Mucinex 600 mg BID Lovenox SC stool studies pending (4) Bilateral lower extremity edema: Chronic per patient Venous Doppler: negative for DVT suspect underlying CHF Lasix 40mg IV one dose ordered (5) Burning chest pain: D dimer 800s troponin flat likely secondary to GERD Protonix IV ordered monitor (6) PVCs (premature ventricular contractions): (7) Heart murmur: Continue cardiac monitoring. Continue home meds (8) GERD (gastroesophageal reflux disease): (9) Dysphagia: Burning in chest and ongoing dysphagia (dysphagia has been for months). Protonix IV improving (10) DVT prophylaxis: Lovenox 40 SQ daily Disposition pending lives with family at home anticipate d/c home when medically stable Admission and Anticipated Discharge Date Admission Date: December 18, 2020 Subjective ff up for COVID pneumonia with hypoxia seen resting in bed, alert, in good spirits states he feels improved today was having some dyspnea earlier, improving per patient has occasional cough diarrhea has resolved appetite is good no chest pain, leg pain no other symptoms Review of Systems Review of Systems: All systems reviewed & are unremarkable except as noted in Subjective Physical Exam Physical Exam: General- oriented x 2, not in distress, speaks in sentences with no effort or accessory muscle use Eyes- anicteric Neck- no JVD Lungs- mild rales at the bases, no wheezing Heart- normal rate, regular rhythm; no murmurs Abdomen- normal bowel sounds, nondistended, soft, nontender Extremities- grade 1 lower leg edema- no erythema/warmth/tenderness, no calf tenderness Neuro- alert, oriented x 2; no gross focal neurologic deficits Skin- warm & dry Results & Data Results & Data ([facility]) Vital Signs (Past 12 Hours) Vital Signs Temp Pulse Resp BP Pulse Ox 12/18/20 15:08 36.9 C 64 21 133/63 92 12/18/20 13:19 69 16 94 12/18/20 12:14 36.7 C 72 24 115/70 12/18/20 08:18 36.8 C 77 20 155/69 H 94
[2020-12-18] MEDS: ATENOLOL 25 MG TABLET PO SCH (20:38)
[2020-12-18] MEDS ORDERED: NURSING DECISION MEDICATION PRN (21:11)
[2020-12-18] MEDS ORDERED: ARTIFICIAL TEARS OP PRN (21:15)
[2020-12-19] MEDS: LEVOTHYROXINE SODIUM 100 MCG TABLET PO SCH (06:55)
[2020-12-19] MEDS: PANTOprazole 40 MG TAB PO SCH (08:45)
[2020-12-19] MEDS: dexAMETHasone 6 MG in SYRINGE 0 ML IV SCH (08:45)
[2020-12-19] MEDS: MULTIVITAMIN TAB PO SCH (08:45)
[2020-12-19] MEDS: guaiFENesin 600 MG TABCR PO SCH ×2 (08:45→20:07)
[2020-12-19 08:52] LABS: Creatinine Clr Calc Pharmacy 63.6 ml/min; Est GFR (African American) 82.5 ml/min; Est GFR (Non-African American) 71.2 ml/min
[2020-12-19 08:58] LABS: BUN Creatinine Ratio 21.8 (10-20); Calcium 7.9 mg/dl (8.5-10.1); Creatinine Clr Calc Pharmacy 65.7 ml/min; Est GFR (African American) 85.8 ml/min
[2020-12-19] MEDS: REMDESIVIR 100 MG in SODIUM CHLORIDE 0.9% 230 ML IV SCH (12:17)
[2020-12-19] MEDS: SODIUM CHLORIDE 0.9% 10ML FLUSH IV SCH (13:13)
--- NOTE | 2020-12-19 13:54 | Electrocardiogram Report ---
Test Reason : Blood Pressure : / mmHG Vent. Rate : 055 BPM Atrial Rate : 064 BPM P-R Int : 000 ms QRS Dur : 096 ms QT Int : 464 ms P-R-T Axes : 000 -34 -01 degrees QTc Int : 443 ms Normal sinus rhythm with 1st degree A-V block with frequent Premature atrial complexes Left axis deviation Minimal voltage criteria for LVH, may be normal variant Abnormal ECG When compared with ECG of 18-DEC-2020 06:04, Premature atrial complexes now present Confirmed by Gary Hays ([id number]) on 12/19/2020 1:54:43 PM Referred By: REFERRED SELF Confirmed By:Gary Hays
[2020-12-19] MEDS: ENOXAPARIN INJ 40 MG/0.4 ML SYR SQ SCH (17:08)
--- NOTE | 2020-12-19 18:08 | Hospitalist Progress Note ---
Date of Service December 19, 2020 Assessment & Plan (1) COVID-19 virus infection: (2) Diarrhea: (3) Acute respiratory failure with hypoxia: per JASON Gee notes: Patient is an 89 yo male who presented to the ED with complaints of diarrhea, stool incontinence, and weakness. He was found to be COVID+ on initial testing. In the ED, patient was also noted to have slight O2 desaturation down to 87% on room air. CXR consistent with viral pneumonia. 12/19 Clinically improving Oxygen saturation also improving 94 to 95% on 2 L NC diarrhea resolved LFTs stable continue Decadron Day 10/04 Remdesivir Day 09/29 Incentive spirometry Q1HWA Flutter valve QID Mucinex 600 mg BID Lovenox SC stool studies pending (4) Bilateral lower extremity edema: Chronic per patient Venous Doppler: negative for DVT suspect underlying CHF Lasix 40mg IV one dose ordered Edema has resolved May need Lasix p.o. at least twice a week (5) Burning chest pain: D dimer 800s troponin flat likely secondary to GERD Protonix IV ordered Will need Protonix p.o. daily upon discharge (6) PVCs (premature ventricular contractions): (7) Heart murmur: Continue cardiac monitoring. Continue home meds (8) GERD (gastroesophageal reflux disease): (9) Dysphagia: Burning in chest and ongoing dysphagia (dysphagia has been for months). Protonix IV --> change to p.o. improving (10) DVT prophylaxis: Lovenox 40 SQ daily Disposition pending lives with family at home anticipate d/c home when medically stable plan of care discussed with patient and his daughter in detail and at length all questions answered they are understanding, agreeable, comfortable with the plan of care Admission and Anticipated Discharge Date Admission Date: December 18, 2020 Subjective Follow-up for COVID-19 pneumonia with hypoxia Seen resting in bed, comfortable, not in distress, on 2 L of oxygen via nasal cannula States he continues to feel better day by day Breathing is improving Still has dry cough No chest pain, shortness of breath, palpitations, dizziness, headache, nausea vomiting Diarrhea has resolved No leg pain Appetite is good No other symptoms Review of Systems Review of Systems: All systems reviewed & are unremarkable except as noted in Subjective Physical Exam Physical Exam: General- oriented x 3, not in distress, speaks in sentences with no effort or accessory muscle use Eyes- anicteric Neck- no JVD Lungs-mild rales bilaterally, no wheezing Good air entry bilaterally Heart- normal rate, regular rhythm; no murmurs Abdomen- normal bowel sounds, nondistended, soft, nontender Extremities-edema has resolved, no calf tenderness Neuro- alert, oriented x 3; no gross focal neurologic deficits Skin- warm & dry Results & Data Results & Data ([facility]) Vital Signs (Past 12 Hours) Vital Signs Temp Pulse Pulse Resp BP Pulse Ox 12/19/20 14:30 62 12/19/20 11:16 36.6 C 58 L 18 126/70 93 12/19/20 07:30 56 L 12/19/20 06:37 36.6 C 68 18 134/74 95 all noted and reviewed including below Laboratory Results Laboratory Results - last 24 hr 12/19/20 12/19/20 07:30 07:36 Sodium 140 Potassium 4.0 Chloride 107 Carbon Dioxide 27 Anion Gap 6.0 BUN 20 H Creatinine 0.95 0.92 Est Cr Clr Drug Dosing 63.6 65.7 Est GFR ( Amer) 82.5 85.8 Est GFR (Non-Af Amer) 71.2 74.0 BUN/Creatinine Ratio 21.8 H Glucose 118 H Calcium 7.9 L AST 82 H ALT 60 (1) GERD (gastroesophageal reflux disease) Esophagitis presence: esophagitis presence not specified Qualified Code(s): K21.9 - Gastro-esophageal reflux disease without esophagitis
[2020-12-19] MEDS: ATENOLOL 25 MG TABLET PO SCH (20:07)
[2020-12-20] MEDS: LEVOTHYROXINE SODIUM 100 MCG TABLET PO SCH (05:30)
[2020-12-20 08:11] LABS: Eosinophils # (auto) 0.02 K/uL (0-0.5); Eosinophils % (auto) 0.4 %; Hematocrit (blood only) 41.7 % (42-52); Hemoglobin 14.6 g/dL (14.0-18.0); Immature Granulocytes # (auto) 0.01 K/uL (0.00-0.02); Immature Granulocytes % (auto) 0.2 %; Lymphocytes # (auto) 1.02 K/uL (1.2-3.4); Lymphocytes % (auto) 20.4 %; Mean Platelet Volume 10.7 fL (7.4-10.4); Monocytes # (auto) 0.62 K/uL (0.11-0.59); Monocytes % (auto) 12.4 %; Neutrophils # (auto) 3.33 K/uL (1.4-6.5); Neutrophils % (auto) 66.6 %; Platelet Count 139 K/uL (130-400); RDW Coefficient of Variation 12.5 % (11.5-14.5); RDW Standard Deviation 43.8 fL (36.4-46.3)
[2020-12-20] MEDS: MULTIVITAMIN TAB PO SCH (08:12)
[2020-12-20] MEDS: dexAMETHasone 6 MG in SYRINGE 0 ML IV SCH (08:12)
[2020-12-20] MEDS: PANTOprazole 40 MG TAB PO SCH (08:12)
[2020-12-20] MEDS: guaiFENesin 600 MG TABCR PO SCH ×2 (08:12→22:19)
[2020-12-20 08:39] LABS: BUN Creatinine Ratio 24.6 (10-20); Calcium 8.2 mg/dl (8.5-10.1); Creatinine Clr Calc Pharmacy 63.6 ml/min; Est GFR (African American) 82.5 ml/min; Est GFR (Non-African American) 71.2 ml/min; Potassium 3.9 mmol/L (3.5-5.1)
[2020-12-20] MEDS: REMDESIVIR 100 MG in SODIUM CHLORIDE 0.9% 230 ML IV SCH (12:11)
[2020-12-20] MEDS: SODIUM CHLORIDE 0.9% 10ML FLUSH IV SCH (13:14)
[2020-12-20] MEDS: ENOXAPARIN INJ 40 MG/0.4 ML SYR SQ SCH (15:31)
--- NOTE | 2020-12-20 16:24 | Hospitalist Progress Note ---
Date of Service December 20, 2020 Assessment & Plan (1) COVID-19 virus infection: (2) Diarrhea: (3) Acute respiratory failure with hypoxia: Patient is an 89 yo male who presented to the ED with complaints of diarrhea, stool incontinence, and weakness. He was found to be COVID+ on initial testing. In the ED, patient was also noted to have slight O2 desaturation down to 87% on room air. CXR consistent with viral pneumonia. Has been on intravenous remdesivir and dexamethasone He has been requiring 2 L of oxygen to maintain saturation Clinically much better Plan to discharge home following tomorrow's dose of remdesivir Diarrhea C. difficile has not been reported as the sample is unacceptable Stool cultures negative Patient is symptomatically much better (4) Bilateral lower extremity edema: Chronic per patient Venous Doppler: negative for DVT suspect underlying CHF Lasix 40mg IV one dose ordered Edema has resolved (5) Burning chest pain: D dimer 800s Troponin flat Likely secondary to GERD Protonix IV ordered Will need Protonix p.o. daily upon discharge Doubt any thromboembolic disorder (6) PVCs (premature ventricular contractions): (7) Heart murmur: Continue cardiac monitoring. Continue home meds (8) GERD (gastroesophageal reflux disease): (9) Dysphagia: Burning in chest and ongoing dysphagia (dysphagia has been for months). Protonix IV --> change to p.o. improving (10) DVT prophylaxis: Lovenox 40 SQ daily Admission and Anticipated Discharge Date Admission Date: December 18, 2020 Subjective 12/20/2020 The patient was seen and examined in medical telemetry unit He has been feeling much better and no shortness of breath at rest He has cough without any chest pain and/or palpitation He was advised to ambulate in the room Review of Systems Review of Systems: All systems reviewed and are unremarkable except as noted below Respiratory: + cough and + dyspnea on exertion Cardiovascular: no chest pain and no palpitations Musculoskeletal: No acute arthritis in any joint Physical Exam Physical Exam: Lying in bed comfortably Constitutional: well developed, well nourished, + ill appearing and + obese Eyes: PERRL, conjunctivae normal, anicteric sclerae ENMT: external ear and nose normal, oropharynx normal Neck: trachea midline, no thyromegaly Respiratory: no respiratory distress Auscultation: + diminished lung sounds; no crackles Cardiovascular: Rate/Rhythm: regular rate and regular rhythm Heart Sounds: no murmur Extremities: no edema Gastrointestinal (Abdomen): Inspection/Auscultation: normal bowel sounds; abdomen not distended Percussion/Palpation: abdomen soft; abdomen nontender Musculoskeletal: No acute arthritis in any joint Neurologic: Alert, awake and oriented x3 Psychiatric: A+Ox3, euthymic affect Lymphatic: no cervical or axillary lymphadenopathy Results & Data Results & Data ([facility]) Vital Signs (Past 12 Hours) Vital Signs Temp Pulse Resp BP Pulse Ox 12/20/20 15:32 36.4 C L 18 113/72 91 12/20/20 13:36 36.4 C L 12/20/20 12:11 61 18 125/63 93 12/20/20 05:25 36.6 C 55 L 20 126/64 92 Laboratory Results Short CBC 12/20/20 Range/Units 07:39 WBC 5.00 (4.8-10.8) K/uL Hgb 14.6 (14.0-18.0) g/dL Hct 41.7 L (42-52) % Plt Count 139 (130-400) K/uL BMP 12/20/20 07:39 Sodium 138 Potassium 3.9 Chloride 107 Carbon Dioxide 25 BUN 23 H Creatinine 0.95 Glucose 109 H Calcium 8.2 L Liver Function 12/20/20 Range/Units 07:39 AST 90 H (15-37) U/L ALT 76 (12-78) U/L Medications Administered Current Inpatient Medications Acetaminophen (Acetaminophen 325 Mg Tab) 650 mg PO Q4H PRN PRN Reason: Pain or Fever Stop: 01/16/21 15:20 Artificial Tears (Artificial Tears) 1 drops OP UD PRN PRN Reason: DRY EYES Stop: 01/17/21 21:14 Last Admin: 12/18/20 22:07 Dose: 1 drops Documented by: Atenolol (Atenolol 25 Mg Tablet) 25 mg PO QPM MAIDA Stop: 01/16/21 20:59 Last Admin: 12/19/20 20:07 Dose: Not Given Documented by: Enoxaparin Sodium (Enoxaparin Inj 40 Mg/0.4 Ml Syr) 40 mg SQ Q24H [facility]IDA Stop: 01/16/21 15:59 Last Admin: 12/20/20 15:31 Dose: 40 mg Documented by: Guaifenesin (Guaifenesin 600 Mg Tabcr) 600 mg PO Q12 [facility] Stop: 01/16/21 20:59 Last Admin: 12/20/20 08:12 Dose: 600 mg Documented by: Dexamethasone 6 mg/ Syringe 1.5 mls @ 1 mls/min IV DAILY [facility] Stop: 12/27/20 13:14 Last Admin: 12/20/20 08:12 Dose: 1 mls/min Documented by: Remdesivir 100 mg/ Sodium (Chloride) 250 mls @ 250 mls/hr IV Q24H [facility]; Protocol Stop: 12/21/20 12:59 Last Infusion: 12/20/20 13:15 Dose: Infused Documented by: Levothyroxine Sodium (Levothyroxine Sodium 100 Mcg Tablet) 100 mcg PO DAILYBB [facility] Stop: 01/17/21 06:29 Last Admin: 12/20/20 05:30 Dose: 100 mcg Documented by: Loperamide HCl (Loperamide Hcl 2 Mg Cap) 2 mg PO UD PRN PRN Reason: Diarrhea Stop: 01/17/21 09:05 Miconazole Nitrate (Miconazole Nitrate Powder 43 Gm) 1 appln EXT PRN PRN PRN Reason: Affected Skin Folds Stop: 01/16/21 16:46 Multivitamins (Multivitamin Tab) 1 tab PO DAILY [facility] Stop: 01/17/21 08:59 Last Admin: 12/20/20 08:12 Dose: 1 tab Documented by: Ondansetron HCl (Ondansetron Inj 2 Mg/Ml 2 Ml Vial) 4 mg IV Q6H PRN PRN Reason: Nausea Stop: 01/16/21 15:20 Sodium Chloride (Sodium Chloride 0.9% 10ml Flush) 30 ml IV Q24H [facility] Stop: 12/21/20 12:01 Last Admin: 12/20/20 13:14 Dose: 30 ml Documented by: (1) GERD (gastroesophageal reflux disease) Esophagitis presence: esophagitis presence not specified Qualified Code(s): K21.9 - Gastro-esophageal reflux disease without esophagitis
[2020-12-20] MEDS: ATENOLOL 25 MG TABLET PO SCH (21:51)
[2020-12-21] MEDS: LEVOTHYROXINE SODIUM 100 MCG TABLET PO SCH (06:11)
[2020-12-21] MEDS: MULTIVITAMIN TAB PO SCH (07:52)
[2020-12-21] MEDS: guaiFENesin 600 MG TABCR PO SCH (07:52)
[2020-12-21] MEDS: dexAMETHasone 6 MG in SYRINGE 0 ML IV SCH (07:52)
[2020-12-21 07:59] LABS: Alanine Aminotransferase 95 U/L (12-78); Aspartate Aminotransferase 85 U/L (15-37)
[2020-12-21] MEDS: REMDESIVIR 100 MG in SODIUM CHLORIDE 0.9% 230 ML IV SCH (11:22)
[2020-12-21] MEDS: SODIUM CHLORIDE 0.9% 10ML FLUSH IV SCH (12:25)
--- NOTE | 2020-12-21 14:13 | Hospitalist Progress Note ---
Date of Service December 21, 2020 Assessment & Plan (1) COVID-19 virus infection: (2) Diarrhea: (3) Acute respiratory failure with hypoxia: Patient is an 89 yo male who presented to the ED with complaints of diarrhea, stool incontinence, and weakness. He was found to be COVID+ on initial testing. In the ED, patient was also noted to have slight O2 desaturation down to 87% on room air. CXR consistent with viral pneumonia. Has been on intravenous remdesivir and dexamethasone He has been requiring 2 L of oxygen to maintain saturation Clinically much better Plan to discharge home following tomorrow's dose of remdesivir Has had to do steps O2 saturation test and does not require any oxygen Will be discharged home this afternoon Diarrhea C. difficile has not been reported as the sample is unacceptable Stool cultures negative Patient is symptomatically much better Resolved (4) Bilateral lower extremity edema: Chronic per patient Venous Doppler: negative for DVT suspect underlying CHF Lasix 40mg IV one dose ordered Edema has resolved (5) Burning chest pain: D dimer 800s Troponin flat Likely secondary to GERD Protonix IV ordered Will need Protonix p.o. daily upon discharge Doubt any thromboembolic disorder (6) PVCs (premature ventricular contractions): (7) Heart murmur: Continue cardiac monitoring. Continue home meds (8) GERD (gastroesophageal reflux disease): (9) Dysphagia: Burning in chest and ongoing dysphagia (dysphagia has been for months). Protonix IV --> change to p.o. improving No more symptoms (10) DVT prophylaxis: Lovenox 40 SQ daily Admission and Anticipated Discharge Date Admission Date: December 18, 2020 Subjective 12/20/2020 The patient was seen and examined in medical telemetry unit He has been feeling much better and no shortness of breath at rest He has cough without any chest pain and/or palpitation He was advised to ambulate in the room 12/21/2020 The patient was seen and examined in medical telemetry unit and Covid room He has been feeling much better and has not been requiring any oxygen He does have minimal cough Review of Systems Review of Systems: All systems reviewed and are unremarkable except as noted below Respiratory: + cough and + dyspnea on exertion Musculoskeletal: No acute arthritis in any joint Physical Exam Physical Exam: Lying in bed comfortably Constitutional: well developed, well nourished, + ill appearing and + obese Eyes: PERRL, conjunctivae normal, anicteric sclerae ENMT: external ear and nose normal, oropharynx normal Neck: trachea midline, no thyromegaly Respiratory: no respiratory distress Auscultation: + diminished lung sounds; no crackles Cardiovascular: Rate/Rhythm: regular rate and regular rhythm Heart Sounds: no murmur Extremities: no edema Gastrointestinal (Abdomen): Inspection/Auscultation: normal bowel sounds; abdomen not distended Percussion/Palpation: abdomen soft; abdomen nontender Musculoskeletal: No acute arthritis in any joint Neurologic: Alert, awake and oriented x3. No focal sensory and motor deficit appreciated Psychiatric: A+Ox3, euthymic affect Lymphatic: no cervical or axillary lymphadenopathy Results & Data Results & Data ([facility]) Vital Signs (Past 12 Hours) Vital Signs Temp Pulse Pulse Pulse Pulse Resp Resp 12/21/20 11:23 36.8 C 67 18 12/21/20 11:02 79 73 70 20 12/21/20 07:25 36.4 C L 62 12/21/20 04:06 36.6 C 55 L 19 Resp Resp BP Pulse Ox Pulse Ox Pulse Ox Pulse Ox 12/21/20 11:23 137/62 95 12/21/20 11:02 20 20 89 L 92 91 12/21/20 07:25 137/79 97 12/21/20 04:06 115/68 91 Laboratory Results Liver Function 12/21/20 Range/Units 07:22 AST 85 H (15-37) U/L ALT 95 H (12-78) U/L (1) GERD (gastroesophageal reflux disease) Esophagitis presence: esophagitis presence not specified Qualified Code(s): K21.9 - Gastro-esophageal reflux disease without esophagitis
--- NOTE | 2020-12-22 09:15 | Discharge Summary ---
Date of Service December 22, 2020 Admission HPI Per Admitting Provider Patient is an 89 yo male with PMHx of hyperlipidemia, PVCs, GERD, and history of Prostate CA in 2009 who presented to the ED with complaints of ongoing diarrhea and stool incontinence starting last night and into this morning. He initially started having increased GERD symptoms with burning in his chest about 1 week ago. He notes that his PCP changed him from omeprazole to famotidine about 3 months ago, and since that time, his GERD has been poorly controlled. He also has ongoing dysphagia at times because of it. Last week, his GERD got much worse, and he has had consistent 'acid in throat' and burning in his chest since that time. His daughter, Camilla is with him today. She notes a mild cough at home as well. The patient has not had his COVID vaccine. He does live at home with one of his sons and is relatively independent. This morning, he also became weak. He did not fall. He notes that he has not eaten much of anything since Friday because of the increased GERD symptoms. No black or bloody stools noted. Upon presentation, patient was noted to be actively incontinent of stool in the waiting room. Since presentation, the patient was noted to be COVID+. Stool for C Diff was rejected though it sounds like he has had persistently watery stools since then. Stool culture pending. Labs show mild anemia with Hgb 13.6. WBC count low at 4.32 CT of the abd/pelvis and CXR both showed signs of viral pneumonia. Creatinine was 1.13 with GFR 57%. AST slightly elevated to 58. SaO2 dropping in ED to 88% on room air during exam. Patient states that he does also have chronic LE edema, but this seems worse th an usual as well. He is not feeling SOB or complaining of chest pain other than the burning. Admission Exam Per Admitting Provider Constitutional: WD/WN, vitals as above Eyes: PERRL, conjunctivae normal, anicteric sclerae ENMT: external ear and nose normal, oropharynx normal Neck: trachea midline, no thyromegaly Respiratory: normal respiratory effort; no respiratory distress, no labored breathing and does not use accessory muscles Auscultation: no crackles and no wheezes Cardiovascular: Rate/Rhythm: regular rate and regular rhythm Heart Sounds: + murmur Extremities: + pedal edema and + edema (B/L LE 1+ trace, but moderate edema otherwise); no calf tenderness Gastrointestinal (Abdomen): Inspection/Auscultation: abdomen normal to inspection and normal bowel sounds; abdomen not distended Percussion/Palpation: abdomen soft; abdomen nontender, no guarding and abdomen not rigid Musculoskeletal: Severe edema B/L LE. L>R. No erythema or warmth. Skin: no rashes, warm and dry Neurologic: PERRL, EOMI, accommodation nl, no face palsy, no dysarthria Psychiatric: A+Ox3, euthymic affect Principal Diagnosis COVID-19 infection, pneumonia, acute respiratory failure with hypoxia, diarrhea- resolved, GERD Discharge Exam Constitutional well developed, well nourished, + ill appearing and + obese Eyes PERRL, conjunctivae normal, anicteric sclerae ENMT external ear and nose normal, oropharynx normal Neck trachea midline, no thyromegaly Respiratory no respiratory distress Auscultation: + diminished lung sounds; no crackles Cardiovascular Rate/Rhythm: regular rate and regular rhythm Heart Sounds: no murmur Extremities: no edema Gastrointestinal (Abdomen) Inspection/Auscultation: normal bowel sounds; abdomen not distended Percussion/Palpation: abdomen soft; abdomen nontender Psychiatric A+Ox3, euthymic affect Lymphatic no cervical or axillary lymphadenopathy Discharge Data Allergies Allergy/AdvReac Type Severity Reaction Status Date / Time No Known Allergies Allergy Unknown Verified 12/17/20 11:34 Consultations 12/17/20 11:27 ED Decision to Admit Stat Ordered Studies 12/17/20 09:36 CT abd pelvis IV con only Stat 12/17/20 13:11 US venous doppler [facility] Urgent Hospital Course (1) COVID-19 virus infection: (2) Diarrhea: (3) Acute respiratory failure with hypoxia: Patient is an 89 yo male who presented to the ED with complaints of diarrhea, stool incontinence, and weakness. He was found to be COVID+ on initial testing. In the ED, patient was also noted to have slight O2 desaturation down to 87% on room air. CXR consistent with viral pneumonia. Has been on intravenous remdesivir and dexamethasone He has been requiring 2 L of oxygen to maintain saturation Clinically much better Plan to discharge home following tomorrow's dose of remdesivir Has had to do steps O2 saturation test and does not require any oxygen Will be discharged home this afternoon Diarrhea C. difficile has not been reported as the sample is unacceptable Stool cultures negative Patient is symptomatically much better Resolved (4) Bilateral lower extremity edema: Chronic per patient Venous Doppler: negative for DVT suspect underlying CHF Lasix 40mg IV one dose ordered Edema has resolved (5) Burning chest pain: D dimer 800s Troponin flat Likely secondary to GERD Protonix IV ordered Will need Protonix p.o. daily upon discharge Doubt any thromboembolic disorder (6) PVCs (premature ventricular contractions): (7) Heart murmur: Continue cardiac monitoring. Continue home meds (8) GERD (gastroesophageal reflux disease): (9) Dysphagia: Burning in chest and ongoing dysphagia (dysphagia has been for months). Protonix IV --> change to p.o. improving No more symptoms (10) DVT prophylaxis: Lovenox 40 SQ daily Total Time Total Time Spent Total Time Spent (In Minutes): 35 minutes Total Time Includes: Examination of the Patient, Discharge Planning, Medication Reconciliation and Communication With Other Providers Discharge Plan Discharge Items Patient Disposition: Home - Self-Care Reason For Visit: COVID +, DIARRHEA Discharge Diagnosis: COVID-19 infection, pneumonia, acute respiratory failure with hypoxia, diarrhea- resolved, GERD Condition on Discharge: Good Activity: Resume your previous activity Non-emergency contact: Primary Care Provider Call non-emergency contact if: you have any medication questions and your symptoms worsen Follow-up/Referrals: Jelena Fajardo [Primary Care Provider] - (Your doctor's office will call with an appointment within 7 days) Diet: Regular Diet Texture: Easy to Chew Addtl Attending Provider Instructions: Please take precaution to avoid fall Take [id number] cough suppressant Please remain in isolation at home for next 5 days and after that follow the CDC guideline as below Coronavirus disease 2019 (COVID-19) is a virus that causes a respiratory illness. It is caused by a coronavirus called 2019 novel coronavirus (2019- nCoV). There are many types of coronavirus. Coronaviruses are a very common cau se of bronchitis. They may sometimes cause lung infection(pneumonia). Symptoms can range from mild to severe respiratory illness. These viruses are also foundin some animals. COVID-19 was first found in people in [facility], in late 2018. In 2020, several cases of COVID-19 have been confirmed in the [place] Public health officials are working to find the source. How the virus spreads is not yet fully known. It may be spread through droplets of fluid that a person coughs or sneezes into the air. It may be spread if you touch a surface with virus on it, such as a handle or object, and then touch your mouth. What are the symptoms of COVID-19? Some people have no symptoms or mild symptoms. Symptoms may appear 2 to 14 days after contact with the virus. Symptoms can include: Fever Coughing Trouble breathing What are possible complications from COVID-19? In many cases, this virus can cause infection (pneumonia) in both lungs. In some cases, this can cause . How is COVID-19 diagnosed? Your healthcare provider will ask about your symptoms. He or she will also ask about your recent travel and contact with sick people. Testing for the virus is only done through the [facility]. If yourhealthcare provider thinks you may have COVID- 19, he or she will work with your local health department and the CDC on test ing. Follow all instructions from your healthcare provider. COVID-19 is diagnosed by: Nasal and throat swab. A cotton-tipped swab is wiped inside your nose or throat. This is done to check for viruses in your nasal mucus. Sputum culture. A small sample of mucus coughed from your lungs (sputum) is collected if you have a cough. It is checked for the virus. How is COVID-19 treated? There is currently no medicine to treat the virus. Treatment is done to help your body while it fights the virus. This is known as supportive care. Supportive care may include: Pain medicine. These include acetaminophen and ibuprofen. They are used to help ease pain and reduce fever. Bed rest. This helps your body fight the illness. For severe illness, you may need to stay in the hospital. Care during severe illness may include: IV (intravenous) fluids.These are given through a vein to help keep your body hydrated. Oxygen. Supplemental oxygen or ventilation with a breathing machine (ventilator) may be given. This is done to keep enough oxygen in your body. Are you at risk for COVID-19? If youve been to a place where people have been sick with this virus, you are at risk for infection. You are at risk if you: Recently traveled to an affected area Had contact with a sick person who recently traveled to this area Had contact with a person who was diagnosed with COVID-19 How can COVID-19 be prevented? There is no vaccine yet. The best prevention is to not have contact with the virus. The CDC advises that people should not travel to areas where there are COVID-19 outbreaks right now for any reason that is not urgent. To help prevent spreading the infection, wash your hands often, or use an alcohol-basedhand washery engineer. If you are in an area with COVID-19: Wash your hands often. Or use an alcohol-based hand washery engineer often. Only touch your eyes, nose, or mouth with clean hands. Dont have contact with people who are sick. Follow local instructions about being in public. For example, you may be told to not use public transport for a period of time. Stay away from markets that have live or animals. Wash your hands after touching any animals. Don't touch animals that may be sick. Dont share eating or drinking tools with sick people. Dont kiss someone who is sick. Clean surfaces often with disinfectant. If you were in an area with COVID-19 in the last 14 days: Call your healthcare provider. He or she can talk with local health staff to see what action may be needed. Follow all instructions from your provider. Take your temperature every morning and evening for at least 14 days. This is to check for fever. Keep a record of the readings. Keep watch for symptoms of the virus. Tell your provider right away if you have symptoms. If you were in an area with COVID-19 and have a fever or other symptoms: Dont panic. Keep in mind that other illnesses can cause similar symptoms. Stay away from work, school, and public places. Limit physical contact with family members. Don't kiss anyone or share eating or drinking utensils. Clean surfaces you touch with disinfectant. This is to help prevent the virus from spreading. Call your healthcare provider. Explain that you have been exposed to COVID-19 and have symptoms. Do this before going to any hospital. Wait for instructions. Keep in mind that healthcare staff may wear protective equipment such as masks, gowns, gloves, and eye protection. You may be put in a separate room. This is to prevent the possible virus from spreading. Tell the healthcare staff about recent travel. This includes local travel on public transport. Staff may need to find other people you have been in contact with. Follow all instructions the healthcare staff give you. If you have been diagnosed with COVID-19 Follow all instructions from your healthcare provider. Dont leave your home, except to get medical care. Call your healthcare providers office before going. They can prepare and give you instructions. This will help prevent the virus from spreading. Dont go to work, school, or public areas. Dont use public transport or taxis. Stay away from other people in your home. Have them wear face masks around you. Dont share household items or food. Wear a face mask if you can. This includes at home or in a medical facility. Cover your face with a tissue when you cough or sneeze. Throw the tissue away. Wash your hands. Wash your hands often. Caregivers should: Follow all instructions from healthcare staff. Wear a face mask and protective clothing as advised. Wash hands often. Keep track of the sick persons symptoms. Clean surfaces, fabrics, and laundry thoroughly. Keep other people away from the sick person. When to call your healthcare provider Call your healthcare provider: If youve recently traveled and have symptoms If you have been diagnosed with COVID-19 and your symptoms are worse To learn more To find out more about COVID-19, visit the CDC website at www.cdc.gov/coronavirus/2019-ncov/index.html. [employer] [address] [place] [address]. All rights reserved. This information is not intended as a substitute for professional medical care. Always follow your healthcare professional's instructions. This information has been adapted from [employer] Pending Studies at Discharge: No Stand-Alone Forms: [facility], Smoking Cessation Medications and DC Order Prescriptions: New dexamethasone 6 mg tablet 6 mg PO DAILY Qty: 5 RF: 0 Continued multivitamin Tablet 1 tab PO DAILY RF: 0 atorvastatin 10 mg tablet 10 mg PO 3XWK RF: 0 atenolol 25 mg tablet 25 mg PO QPM RF: 0 levothyroxine 100 mcg tablet 100 mcg PO QAM RF: 0 famotidine 20 mg tablet 20 mg PO QAM RF: 0 vitamin E 400 unit Capsule 400 unit PO DAILY RF: 0 zinc 10 mg Tablet 10 mg PO DAILY RF: 0 ascorbic acid (vitamin C) 25 mg Tablet 25 mg PO DAILY RF: 0 Discharge Orders: Discharge Order (Routine); Ordered 12/21/20 Ordered By: Joaquín Valenzuela Admission Data Admit Date/Time: 12/18/20 08:01 Attending Provider: Joaquín Valenzuela Admit Provider: Jesús Wilder Primary Care Provider: Jelena Fajardo Other Providers: Jesús Wilder Other Interventions: Discharge Summary Assessment (RN) Last Done: 12/21/20 14:24
--- NOTE | 2020-12-29 10:23 | Coding Query ---
CODING QUERY To promote full compliance with coding requirements relating to patient care, provider participation is requested in all cases of job setter uncertainty. Please assist us with the question(s) below: Coding Question(s): "COVID Pneumonia" is documented in chart but discharge summary states "COVID-19 Infection, Penumonia..." Please clarify below: ( +) Pneumonia due to COVID ( ) Pneumonia not due to COVID ( ) Other Please Explain: Thank you [place] Principal Diagnosis: "that condition established after study, to be chiefly responsible for occasioning the admission of the patient to the hospital for care." Co-Existing Principal Diagnosis: "when two or more diagnoses equally meet the criteria for principal diagnosis as determined by the circumstances of admission, diagnostic work up, and/or therapy provided, and the Alphabetic Index, Tabular List, or another coding guideline does not provide sequencing direction, any one of the diagnoses may be sequenced first." "When the physician has documented what appears to be a current diagnosis in the body of the record, but has not included the diagnosis in the final diagnostic statement, the physician should be asked whether the diagnosis should be added." (Source [facility] 2 QTR90. p3-4) JOSUE
== END 2020-12-21 14:35 | disposition home or self-care (01) | DRG 177 ==
LOC: ED 07:52 → 2W 07:52 → SUATTDRO 12-18 08:01